=== PATIENT | female | born 1990 | race African-American/Black ===

== ENCOUNTER 2017-06-24 04:15 | Emergency (ER) | payer MEDICAID, OTHER ==
[~2017-06-24] VITALS: Ht 170.2 cm; Wt 58.0 kg
[2017-06-24] MEDS ORDERED: AZITHROMYCIN 500 MG TABLET PO STA (05:08)
[2017-06-24] MEDS ORDERED: IPRATROPIUM BROMIDE (0.02%) 0.5MG/2.5ML NEB HHN STA (05:08)
[2017-06-24] MEDS ORDERED: ALBUTEROL (0.083%) 2.5MG/3ML NEB HHN STA (05:08)
[2017-06-24] MEDS ORDERED: PREDNISONE 20MG TABLET PO STA (05:08)
[2017-06-24 05:16] VITALS: BP 13/64
== END 2017-06-24 06:28 | disposition home or self-care (01) ==
LOC: ER 04:16
DX: J45.901 Unspecified asthma with (acute) exacerbation (principal); Z91.14 Patient's other noncompliance with medication regimen; Z98.890 Other specified postprocedural states
CPT/HCPCS: 71010; 94640; 99284; J7512; J7611

== ENCOUNTER 2019-10-11 17:49 | Emergency (ER) | payer MEDICAID, OTHER ==
[~2019-10-11] VITALS: Ht 165.1 cm; Wt 50.0 kg
[2019-10-11] MEDS ORDERED: ONDANSETRON 4MG ODT PO PRN (18:15)
[2019-10-11] MEDS ORDERED: FAMOTIDINE 20MG/2ML VIAL IV ONE (19:00)
[2019-10-11] MEDS ORDERED: ONDANSETRON HCL 4MG/2ML INJ IV ONE (19:00)
[2019-10-11] MEDS ORDERED: KETOROLAC 15MG/ML VIAL IV ONE (19:00)
[2019-10-11] MEDS ORDERED: MAGNESIUM/ALUMINUM HYDROXIDE/SIMETHICONE 30ML UDC PO ONE (19:00)
[2019-10-11 19:15] LABS: CLARITY URINE CLEAR (CLEAR); COLOR URINE YELLOW (YELLOW); KETONES URINE 2+ (NEGATIVE); LEUKOCYTE ESTERASE URINE NEGATIVE (NEGATIVE); NITRITE URINE NEGATIVE (NEGATIVE); OCCULT BLOOD URINE NEGATIVE (NEGATIVE); PROTEIN URINE 1+ (NEGATIVE); SPECIFIC GRAVITY URINE 1.013 (1.005-1.030); UROBILINOGEN URINE 0.2 E.U./dL (0.2-1.0)
[2019-10-11 19:19] LABS: BASOPHILS % 0.5 % (0.0-2.0); EOSINOPHILS % 0.4 % (0.0-5.0); HEMATOCRIT. 36.4 % (36.0-48.0); HEMOGLOBIN. 12.7 g/dL (12.0-16.0); MEAN CORPUSCULAR HEMOGLOBIN 30.3 pg (28.0-32.0); MEAN CORPUSCULAR VOLUME 86.9 fL (81.0-99.0); MONOCYTES % 5.4 % (2.0-8.0); NEUTROPHILS % 72.7 % (40.0-76.0); PLATELET 200 x1000/uL (130-400); RED BLOOD CELL COUNT 4.19 mill/uL (4.2-5.4)
[2019-10-11 19:22] LABS: CHLORIDE 104 mEq/L (98-107); HCG SCREEN NEGATIVE
[2019-10-11] MEDS ORDERED: ALBUTEROL (0.083%) 2.5MG/3ML NEB HHN STA (21:02)
[2019-10-11] MEDS ORDERED: IPRATROPIUM BROMIDE (0.02%) 0.5MG/2.5ML NEB HHN STA (21:02)
[2019-10-11] MEDS ORDERED: MAGNESIUM 2 G PREMIX 50 ML IV ONE (21:15)
[2019-10-11] MEDS ORDERED: DEXAMETHASONE 4MG/ML 1ML VIAL IV ONE (21:15)
[2019-10-11] MEDS ORDERED: IOHEXOL-300 100 ML BOTTLE ONE (21:53)
[2019-10-12] MEDS ORDERED: ALBUTEROL (0.083%) 2.5MG/3ML NEB HHN ONE (00:45)
[2019-10-12 03:56] VITALS: BP 114/55
== END 2019-10-12 04:50 | disposition short-term general hospital (02) ==
LOC: ER 17:49
DX: J45.901 Unspecified asthma with (acute) exacerbation (principal); R10.13 Epigastric pain; J45.909 Unspecified asthma, uncomplicated
CPT/HCPCS: 36415; 71045; 74177; 80053; 81003; 83690; 84484; 84703; 85025; 93005; 94640; 96365; 96375; 99285; J1100; J1885; J2405; J3475; J3490; J7611; Q9967; Z7610